=== PATIENT | female | born 1970 | race Caucasian/White ===

== ENCOUNTER 2020-05-12 15:04 | Inpatient (IN) ==
[2020-05-12] MEDS ORDERED: Nicotine 14 MG PATCH.TD24 TD SCH (16:15)
[2020-05-12 16:21] LABS: Basophils # 0.1 K/mcL (0.0-0.2); Basophils % 0.8 %; Eosinophils # 0.3 K/mcL (0.0-0.6); Eosinophils % 4.6 %; Hematocrit 40.9 % (35.3-44.9); Hemoglobin 13.7 g/dL (11.5-15.4); Immature Granulocytes % 0.3 % (0-4); Lymphocytes # 2.5 K/mcL (0.6-4.6); Lymphocytes % 34.2 %; Mean Corpuscular HGB Conc 33.5 g/dL (31.6-35.5); Mean Corpuscular Hemoglobin 30.6 pg (28.0-33.3); Mean Corpuscular Volume 91.3 fL (83.0-100.0); Mean Platelet Volume 10.3 fL (9.4-12.4); Monocytes # 0.7 K/mcL (0.0-1.3); Monocytes % 9.5 %; Neutrophils # 3.6 K/mcL (1.6-8.9); Platelet Count 220 K/mcL (140-400); Red Blood Count 4.48 M/mcL (3.82-4.97); Red Cell Distribution Width 11.9 % (11.5-14.5); Segmented Neutrophils % 50.6 %; White Blood Count 7.2 K/mcL (4.3-11.1)
[2020-05-12 16:49] LABS: Bilirubin,Urine Moderate (Negative); Blood,Urine Negative (Negative); Clarity,Urine Turbid (Clear); Color,Urine Yellow (Yellow); Glucose,Urine (UA) Normal (Normal); Ketones,Urine Negative (Negative); Leukocyte Esterase,Urine Negative (Negative); Nitrite,Urine Negative (Negative); PH,Urine 5.5 pH Units (5.0-8.0); Protein,Urine 100 mg/dL (Neg-Trace); Specific Gravity,Urine >= 1.030 (1.010-1.025); Urobilinogen,Urine Normal (Normal)
[2020-05-12 16:59] LABS: Acetaminophen < 10 mcg/mL (10-20); BUN/Creatinine Ratio 10 (6-26); Blood Urea Nitrogen 10 mg/dL (6-20); Calcium 9.8 mg/dL (8.6-10.3); Carbon Dioxide 24 mEq/L (23-29); Chloride 106 mEq/L (98-107); Cholesterol 186 mg/dL (< 200); Ethanol < 10 mg/dL (Less than 10); Glucose 85 mg/dL (70-105); HDL Cholesterol 46 mg/dL (40-59); LDL Cholesterol,Calculated 120 mg/dL (< 100); Osmolality,Calculated 284 (280-300); Potassium 3.7 mEq/L (3.5-5.1); Sodium 138 mEq/L (136-145); Triglycerides 99 mg/dL (< 150); eGFR For African Americans > 60 (> 60); eGFR For Non-African Americans 58 (> 60)
[2020-05-12 17:04] LABS: Hyaline Casts,Urine Many per lpf (None Seen); Squamous Epithelial Cell,Urine Many per hpf (None-Few)
[2020-05-12 17:05] LABS: Bacteria,Urine Many per hpf (None-Few); Calcium Oxalate Crystals,Urine Present
[2020-05-12 17:12] LABS: Salicylate < 2.5 mg/dL (15.0-30.0)
[2020-05-12 17:13] LABS: Amphetamine Screen,Urine Negative ng/mL (Cutoff=1000); Barbiturate Screen,Urine Positive ng/mL (Cutoff=200); Benzodiazepines Screen,Urine Negative ng/mL (Cutoff=200); Cannabinoid Screen,Urine Negative ng/mL (Cutoff = 50); Opiate Screen,Urine Negative ng/mL (Cutoff=300); Phencyclidine Screen,Urine Negative ng/mL (Cutoff=25)
[2020-05-12 17:26] LABS: Cocaine Screen,Urine Positive ng/mL (Cutoff= 300)
[2020-05-12 17:32] LABS: Estimated Average Glucose 108 mg/dl; Hemoglobin A1C 5.4 %
[2020-05-12] MEDS ORDERED: haloperidoL 5 MG TABLET PO PRN (23:38)
[2020-05-12] MEDS ORDERED: *HR* LORazepam 2 MG/ML VIAL IM PRN (23:38)
[2020-05-12] MEDS ORDERED: Ibuprofen 400 MG TABLET PO PRN (23:38)
[2020-05-12] MEDS ORDERED: hydrOXYzine pamoate 25 MG CAPSULE PO PRN (23:38)
[2020-05-12] MEDS ORDERED: *HR* LORazepam 1 MG TABLET PO PRN (23:38)
[2020-05-12] MEDS ORDERED: Haloperidol Lactate 5 MG/ML VIAL IM PRN (23:38)
[2020-05-12] MEDS ORDERED: MOM Conc 10 ML UD.LIQ PO PRN (23:38)
[2020-05-12] MEDS ORDERED: QUEtiapine Fumarate 25 MG TABLET PO PRN (23:38)
[2020-05-12] MEDS ORDERED: Mag Hydrox/Al Hydrox/Simeth 30 ML UDC PO PRN (23:38)
[2020-05-13] MEDS ORDERED: Nicotine 14 MG PATCH.TD24 TD SCH (11:06)
[2020-05-13] MEDS: RisperiDONE-M 1 MG TAB.RAPDIS PO SCH ×2 (11:08→20:16)
[2020-05-13] MEDS: Budesonide/Formoterol 80/4.5 1 PUFF INH IH SCH ×2 (16:27→20:16)
[2020-05-13 18:32] LABS: Bacteria,Urine Few per hpf (None-Few); Bilirubin,Urine Negative (Negative); Blood,Urine Negative (Negative); Calcium Oxalate Crystals,Urine Present; Clarity,Urine Clear (Clear); Color,Urine Yellow (Yellow); Glucose,Urine (UA) Normal (Normal); Ketones,Urine Trace mg/dL (Negative); Leukocyte Esterase,Urine Small (Negative); Mucus,Urine Many per lpf (None-Few); Nitrite,Urine Negative (Negative); Protein,Urine Trace mg/dL (Neg-Trace); RBC,Urine 0-3 per hpf (0-3); Specific Gravity,Urine 1.026 (1.010-1.025); Squamous Epithelial Cell,Urine Few per hpf (None-Few)
[2020-05-14] MEDS ORDERED: Nicotine 14 MG PATCH.TD24 TD SCH (09:00)
[2020-05-14] MEDS: RisperiDONE-M 1 MG TAB.RAPDIS PO SCH (09:27)
[2020-05-14 09:40] VITALS: BP 101/64
[2020-05-14] MEDS: Budesonide/Formoterol 80/4.5 1 PUFF INH IH SCH (09:56)
[2020-05-14] MEDS ORDERED: RisperiDONE-M 1 MG TAB.RAPDIS PO SCH (21:00)
== END 2020-05-14 12:15 | disposition home or self-care (01) | DRG 751 ==
LOC: EMEROOARM 15:04 → 1ANU 23:27
PROVIDERS: ADMIT Psychiatry & Neurology Psychiatry; ATTEND Psychiatry & Neurology Psychiatry